=== PATIENT | female | born 1975 | race African-American/Black ===

== ENCOUNTER 2019-08-26 13:34 | Emergency (ER) | payer OTHER, SELFPAY ==
[2019-08-26 13:38] VITALS: BP 148/82; PULSE 120; RESP 20; TEMP 38; O2SAT 100
--- NOTE | 2019-08-26 13:59 | ED.GENADULT ---
HPI - General Adult General Chief complaint: Unspecified Stated complaint: body aches, unknown fever, cold symptoms Time Seen by Provider: 08/26/19 13:46 Source: patient Mode of arrival: ambulatory Limitations: no limitations History of Present Illness HPI narrative: Patient is a 44-year-old female who presents to emergency department for evaluation of upper respiratory symptoms that began last night was getting over an upper respiratory infection that she had had in the last 10 days but acutely began to feel worse last night with fever chills body ache rhinorrhea congestion and cough patient notes pain with coughing that is a mild aching pain patient took medication last night with minimal improvement patient on arrival to emergency department is in the room Review of Systems Review of Systems: Narrative: CONSTITUTIONAL: Positive for fever and chills and sweats EYES: Denies redness, or discharge. ENT: Positive for rhinorrhea, congestion, sore throat, and otalgia. RESPIRATORY: Denies dyspnea. GASTROINTESTINAL: Denies abdominal pain, nausea, vomiting, or diarrhea. GENITOURINARY: Denies dysuria or hematuria. SKIN: Denies rash or itching. MUSCULOSKELETAL: Denies back pain, joint pain, or myalgia. NEUROLOGIC: Denies headache, or weakness. [facility] Surgical History Surgical History (Updated 08/26/19 @ 14:06 by Aki Payne PA-C) History of orthopedic surgery Social History Social History (Updated 08/26/19 @ 14:06 by Aki Payne PA-C) Smoking status: Never smoker Gender identity (if verbalized by the patient): Female Exam Narrative: Exam Narrative: GENERAL: Ill-appearing, well-nourished, and in no acute distress. HEAD: Normocephalic, atraumatic. EYES: PERRLA and EOMI. ENT: Nares clear, no rhinorrhea or epistaxis. Mucous membranes moist. Oropharynx without tonsillar hypertrophy exudate or other lesions. Bilateral TMs pearly rosas nonbulging NECK: Supple. No adenopathy or masses. CHEST: Clear to auscultation. No respiratory distress. No wheezes rales or rhonchi HEART: Regular rate and rhythm. No murmur heard. EXTREMITIES: Normal range of motion. No edema. SKIN: Warm, dry, no rash. NEURO: No focal deficits. Alert and oriented x3. PSYCH: Normal mood and affect. Course Course Emergency Course: Patient in the room in no distress aware of case findings treatment plan and diagnosis agreeing to follow-up as directed Vital Signs Vital signs: Vital Signs Temperature 100.4 F H 08/26/19 13:38 Pulse Rate 120 H 08/26/19 13:38 Respiratory Rate 20 08/26/19 13:38 Blood Pressure 148/82 H 08/26/19 13:38 Pulse Oximetry 100 08/26/19 13:38 Temperature 100.4 F H 08/26/19 13:38 Pulse Rate 120 H 08/26/19 13:38 Respiratory Rate 20 08/26/19 13:38 Blood Pressure 148/82 H 08/26/19 13:38 Pulse Oximetry 100 08/26/19 13:38 Medical Decision Making MDM Narrative Medical decision making narrative: Patient with influenza A in the room in no distress will be treated symptomatically felt appropriate for outpatient reevaluation provided with reasons to return Vital Signs Vital Signs: Vital Signs Temperature 100.4 F H 08/26/19 13:38 Pulse Rate 120 H 08/26/19 13:38 Respiratory Rate 08/26/19 13:38 Blood Pressure 148/82 H 08/26/19 13:38 Pulse Oximetry 100 08/26/19 13:38 Temperature 100.4 F H 08/26/19 13:38 Pulse Rate 120 H 08/26/19 13:38 Respiratory Rate 08/26/19 13:38 Blood Pressure 148/82 H 08/26/19 13:38 Pulse Oximetry 100 08/26/19 13:38 Lab Data Labs: Influenza A Screen Positive Reference Range: Negative Influenza B Screen Negative Reference Range: Negative Discharge Plan Discharge Clinical Impression: Influenza A Patient Disposition: Home, Self-Care Condition: Stable Instructions: Antibiotic Form, Influenza (ED) Additional Instructions: Follow up with your primary care provider within 5-7 days. Go
[2019-08-26] MEDS: IBUPROFEN 600 MG TABLET PO (14:08)
[2019-08-26] MEDS: ACETAMINOPHEN 500 MG TABLET 1000 MG PO (14:09)
== END 2019-08-26 14:35 | disposition home or self-care (01) ==
PROVIDERS: Emergency Provider Emergency Medicine
DX: J10.1 Influenza due to other identified influenza virus with other respiratory manifestations (principal)
CPT/HCPCS: 87804; 99283; A9270

== ENCOUNTER 2019-09-26 16:51 | Emergency (ER) | payer OTHER, SELFPAY ==
[2019-09-26 17:26] VITALS: BP 138/81; PULSE 100; RESP 18; TEMP 37; O2SAT 100
--- NOTE | 2019-09-26 17:33 | ED.SKABFB ---
HPI - Skin/Abscess/Foreign Bdy General Chief complaint: Skin/Abscess/Foreign Body Stated complaint: Qtip stuck in R ear Time Seen by Provider: 09/26/19 17:31 Source: patient and RN notes reviewed Mode of arrival: other Limitations: no limitations History of Present Illness HPI narrative: Pt is a 44 y/o female who presents to the ED with c/o a foreign body in her right ear that occurred yesterday while at home. Pt states that she was using a Q-tip last night and the cotton part of the Q-tip got stuck in her ear. Pt went to her PCP's office today and she states her PCP saw the cotton from the Q-tip, but she said her PCP said it was too deep for her PCP to get it out. Pt also report otalgia in her right ear, but denies a fever. complaint: foreign body Onset (ago): day(s) (1) Context: other (used a Q-tip) Associated symptoms: other (otalgia in right ear) Review of Systems Review of Systems: All systems reviewed & are unremarkable except as noted in HPI and below Constitutional: Constitutional: Denies fever(s) ENT: Reports otalgia (in right ear) and Reports other (foreign body sensation in right ear) PMFSH Past Medical History Medical History (Updated 09/26/19 @ 17:53 by Violeta Viveros) Patient denies significant medical history Surgical History Surgical History (Updated 08/26/19 @ 14:06 by Aki Payne PA-C) History of orthopedic surgery Social History Social History (Updated 08/26/19 @ 14:06 by Aki Payne PA-C) Smoking status: Never smoker Gender identity (if verbalized by the patient): Female Exam Const: General: healthy appearing and no acute distress Nutritional Appearance: well nourished HENMT: Ears: hearing grossly normal bilaterally and TM's normal bilaterally (No foreign body seen) Mouth: Yes lip normal and Yes moist mucous membranes Eyes: Conjunctivae: conjunctivae normal Pupils: Equal, round and reactive pupils present Resp: Effort & Inspection: normal respiratory effort Back/Spine/Pelvis: Back: other (full ROM) Skin: General skin exam: normal color, dry skin and other (warm) Neuro: General: patient oriented x3 and other (alert) Speech: normal speech Extrem: General: full ROM Psych: Mental Status: mental status grossly normal Affect: normal affect Course Vital Signs Vital signs: Vital Signs Temperature 37.0 C 09/26/19 17:26 Pulse Rate 100 09/26/19 17:26 Respiratory Rate 18 09/26/19 17:26 Blood Pressure 138/81 09/26/19 17:26 Pulse Oximetry 100 09/26/19 17:26 Temperature 37.0 C 09/26/19 17:26 Pulse Rate 68 09/26/19 18:44 Respiratory Rate 16 09/26/19 18:44 Blood Pressure 114/67 09/26/19 18:44 Pulse Oximetry 97 09/26/19 18:44 MDM - Skin/Abscess/Foreign Bdy Differential Diagnosis Differential diagnosis: Likely other (foreign body otitis media) Medical Records Attestation: I reviewed the patient's medical records. Lab Data Attestation: I reviewed the patient's lab results. Discharge Plan Discharge Clinical Impression: Foreign body sensation in ear canal Qualifiers: Laterality: right Qualified Code(s): H61.891 - Other specified disorders of right external ear Patient Disposition: Home, Self-Care Condition: Stable Instructions: Earache (ED) Prescriptions: No Action oseltamivir [Tamiflu] 75 mg capsule 75 mg PO Q12H 5 Days Qty: 10 RF: 0 fluticasone propionate [Flonase Allergy Relief] 50 mcg/actuation spray,suspension 2 spray NASAL DAILY Qty: 9.9 RF: 0 montelukast [Singulair] 10 mg tablet 10 mg PO DAILY Qty: 7 RF: 0 ibuprofen [IBU] 600 mg tablet 600 mg PO TID PRN (Reason: fever or pain) Qty: 7 RF: 0 Follow-up/Referrals: UNKNOWN,DOCTOR [Primary Care Provider] - Discharge Date/Time: 09/26/19 18:45
--- NOTE | 2019-09-26 18:43 | PC.NURSE ---
Right ear lightly irrigated with Normal Saline. No foreign body visualized before or after irrigation. No complications noted before or after irrigation.
[2019-09-26 18:44] VITALS: BP 114/67; PULSE 68; RESP 16; O2SAT 97
== END 2019-09-26 18:45 | disposition home or self-care (01) ==
PROVIDERS: Emergency Provider Emergency Medicine
DX: H61.891 Other specified disorders of right external ear (principal)
CPT/HCPCS: 99282

== ENCOUNTER 2022-01-17 14:51 | Emergency (ER) | payer OTHER, SELFPAY ==
--- NOTE | ~2022-01-17 | CT_ITS ---
EXAMINATION: CT abdomen pelvis w con DATE: 01/17/2022 18:24 INDICATION: left flank pain, llq abdominal pain, nausea TECHNIQUE: Computed tomography (CT) of the abdomen and pelvis was performed with 100 mL Omnipaque-300 intravenous contrast. Automated exposure control and iterative reconstruction technique were employe d. The dose-length product was 514.58 mGy-cm. COMPARISON: None. FINDINGS: Lower thorax: Unremarkable Liver: Multiple liver cysts. Multiple liver hemangiomas. Multiple hypodensities, too small to charact erize, but also likely represent cysts. Biliary/Gallbladder: Partially contracted. No bile duct dilation. Pancreas: No mass or duct dilation. Spleen: Normal. Adrenals:No mass. Kidneys: Left upper pole simple cyst. Multiple bilateral hypodensities that are too small to characte rize but also likely represent cysts. No mass or hydronephrosis. GI tract: No small or large bowel dilation. Normal appendix. Mesentery/Peritoneum: No ascites, mass, or free air. Retroperitoneum: No mass. Pelvis: Fibroid uterus. Right corpus luteal cyst. Coarse calcification in the left ovary. Multiple pe lvic phleboliths. Soft Tissues: Soft tissues and body wall unremarkable. Bones: No acute osseous finding. IMPRESSION: No acute abdominopelvic process. Reviewed, dictated and finalized at location K.
[2022-01-17 14:53] VITALS: BP 145/83; PULSE 120; RESP 18; TEMP 37.1; O2SAT 100
[2022-01-17 15:26] LABS: Appearance Urine Clear (Clear); Bilirubin Urine Negative (Negative); Color Urine Yellow (Yellow); Glucose Urine UA Negative (Negative); Ketones Urine Negative (Negative); Leukocyte Esterase Ur Negative LEU/UL (Negative); Nitrate Urine Negative (Negative); Protein Urine Negative (Negative); Specific Grav Ur 1.025 (1.001-1.035); Urobilinogen Urine 0.2 mg/dL (<2.0)
[2022-01-17 15:27] LABS: Add Urine Microscopic? YES; Blood Urine Trace-Intact (Negative)
[2022-01-17 15:30] LABS: Bacteria Urine Trace /hpf; Mucus Urine Rare /lpf; RBC Urine 0-2 /hpf (0-2); Squamous Epithelial Cell Urine Occasional /hpf (Few); WBC Urine 0-3 /hpf
--- NOTE | 2022-01-17 16:24 | ECG_ITS ---
Measurements Intervals [place] Rate: 99 P: 37 SD: 145 QRS: -29 QRSD: 84 T: 22 QT: 330 QTc: 424 Interpretive Statements SINUS RHYTHM LEFTWARD AXIS NONSPECIFIC T-WAVE ABNORMALITY NO PREVIOUS ECG AVAILABLE FOR COMPARISON Electronically Signed On 01-18-2022 10:49:31 CDT by Ozzie Le M.D.
--- NOTE | 2022-01-17 16:25 | ED.FEMALEGU ---
HPI - Female Genitourinary General Chief complaint: Urogenital-Female Stated complaint: uti or kidney infection Time Seen by Provider: 01/17/22 16:17 History of Present Illness HPI Narrative: Patient is a 46-year-old female with a history of spinal cord injury requiring her to self catheterize here for evaluation of left low back pain and cramping for the past 3 days. Patient states the pain is there all the time and she states that she has had a similar pain in the past with previous UTIs. She additionally complaining of urinary frequency, hematuria, subjective fevers, nausea, and some lower abdominal pain. No vomiting, chest pain, shortness of breath, saddle anesthesia, vaginal discharge. Related Data Home Medications Medication Instructions Recorded Confirmed No Home Medications 01/17/22 Allergies Allergy/AdvReac Type Severity Reaction Status Date / Time No Known Allergies Allergy Verified 01/17/22 14:55 Review of Systems Review of Systems: Gen.: Reports subjective fevers. Eyes: Denies eye pain or visual change ENT: Denies congestion Respiratory: Denies shortness of breath or cough CV: Denies chest pain or palpitations GI: Reports lower abdominal pain and nausea. Denies emesis or diarrhea reports frequency, hematuria. Denies vaginal discharge. Musculoskeletal: Reports left low back pain. Neuro: Denies numbness, tingling, weakness or focal weakness Skin: Denies rash Except as documented, all other systems reviewed and negative [facility] Past Medical History Medical History Patient denies significant medical history Surgical History Surgical History History of orthopedic surgery Social History Social History (Updated 08/26/19 @ 14:06 by Aki Payne, [place]) Smoking status: Never smoker Gender identity (if verbalized by the patient): Female Exam Narrative: APPEARANCE: Well-appearing, in wheelchair Head: Normocephalic and atraumatic. EYES: PERRLA/EOMI, conjunctivae clear NOSE: No nasal drainage EARS: External ear normal in appearance THROAT: Oropharynx is clear. Mucous membranes are moist. NECK: Supple. No adenopathy, no masses. RESPIRATORY: Airway patent, respirations nonlabored. Clear to auscultation bilaterally, no rales, rhonchi, wheezing. CARDIOVASCULAR: Regular rate and rhythm without murmurs, rubs, or gallops. ABDOMINAL: Mild tenderness in suprapubic region. Normoactive bowel sounds. Soft, nontender, nondistended. No rebound tenderness or guarding. MUSCULOSKELETAL: Left CVA tenderness. Extremities are warm and well-perfused. No edema. NEURO: Normal speech. SKIN: Skin is warm and dry. No rashes. PSYCHIATRIC: Normal affect/mood. Course Vital Signs Vital signs: Vital Signs Temperature 98.8 F 01/17/22 14:53 Pulse Rate 120 H 01/17/22 14:53 Respiratory Rate 18 01/17/22 14:53 Blood Pressure 145/83 H 01/17/22 14:53 Pulse Oximetry 100 01/17/22 14:53 Oxygen Delivery Room Air 01/17/22 14:53 Temperature 98.8 F 01/17/22 14:53 Pulse Rate 120 H 01/17/22 14:53 Respiratory Rate 18 01/17/22 14:53 Blood Pressure 145/83 H 01/17/22 14:53 Pulse Oximetry 100 01/17/22 14:53 Oxygen Delivery Room Air 01/17/22 14:53 MDM - Female Genitourinary MDM Narrative Medical decision making narrative: 46 year old female here for evaluation of left sided flank pain, urgency, frequency today. Patient is tachycardic, vital signs otherwise normal, upon chart review her heart rate is chronically elevated. EKG is in sinus tach; troponin and dimer negative; not having chest pain. She has moderate tenderness over her left flank. Considered uti, pyelonephritis, nephrolithiasis, low back sprain. Workup significant for clear UA, h/h is 7.9/28.9. she tells me she has chronically low hemoglobin due to iron deficiency anemia; occasionally at times as
[2022-01-17 17:18] LABS: Basophils Percent Auto 0.9 % (0.2-1.2); Eosinophils Absolute Auto 0.1 K/mm3 (0-0.3); Hematocrit 28.9 % (37.0-47.0); Hemoglobin 7.9 g/dL (12.0-15.0); Immature Granulocyte Absolute 0.01 K/mm3 (0.00-0.031); Immature Granulocyte Percent A 0.2 % (0-0.5); Lymphocytes Percent Auto 8.7 % (18.3-44.2); Mean Corpuscular HGB Conc 27.3 g/dl (32-36); Mean Corpuscular Hemoglobin 18.9 pg (26-34); Mean Platelet Volume 8.8 fl (7.4-10.4); Monocytes Absolute Auto 0.3 K/mm3 (0.1-0.6); Monocytes Percent Auto 6.1 % (2.6-8.5); Neutrophils Absolute Auto 3.8 K/mm3 (1.3-6.7); Neutrophils Percent Auto 82.1 % (45.5-73.1); Platelet Count Result 535 k/mm3 (150-375); Red Blood Count 4.19 M/mm3 (4.2-5.4); Red Cell Distribution Width 17.7 % (11.5-14.5); White Blood Count 4.6 K/mm3 (4.5-10.0)
[2022-01-17 17:33] LABS: Alanine Aminotransferase 11 U/L (6-35); Albumin Level 4.2 g/dL (3.5-5.1); Alkaline Phosphatase 70 U/L (38-126); Anion Gap 7 mmol/L (8-16); Aspartate Amino Transferase 24 U/L (14-36); Bilirubin,Total 0.1 mg/dL (0.2-1.3); Blood Urea Nitrogen 11 mg/dL (7-17); Calcium 8.7 mg/dL (8.4-10.2); Carbon Dioxide 23 mmol/L (22-30); Chloride 107 mmol/L (98-107); Estimated CRCL calculation 80 ml/min; Estimated Glomerular Filt Rate > 60; Glucose 93 mg/dL (65-110); Lipase 108 U/L (23-300); Potassium 3.9 mmol/L (3.4-5.0); Sodium 137 mmol/L (137-145)
[2022-01-17 17:36] LABS: Anisocytosis 1+ (NORMAL); Hypochromasia 1+ (NORMAL); Ovalocytes 1+ (NORMAL); Platelet Estimate Increased (Adequate); Target Cells 1+ (NORMAL)
[2022-01-17 17:38] LABS: D Dimer 0.48 ug/mL (<0.48)
[2022-01-17 17:43] LABS: Troponin I < 0.012 ng/mL (0.000-0.034)
[2022-01-17] MEDS: ACETAMINOPHEN 500 MG TABLET 1000 MG PO (19:27)
[2022-01-17] MEDS: IBUPROFEN 600 MG TABLET PO (19:28)
== END 2022-01-17 19:39 | disposition home or self-care (01) ==
PROVIDERS: Emergency Medicine; Physician Assistant; Emergency Provider Emergency Medicine
DX: M54.50 Low back pain, unspecified (principal); D50.9 Iron deficiency anemia, unspecified; R94.31 Abnormal electrocardiogram [ECG] [EKG]
CPT/HCPCS: 36415; 74177; 80053; 81001; 81025; 83690; 84484; 85025; 85380; 93005; 99284; A9270; Q9967

== ENCOUNTER 2023-06-16 08:33 | Emergency (ER) | payer OTHER, SELFPAY ==
--- NOTE | ~2023-06-16 | CT_ITS ---
EXAMINATION: CT abdomen pelvis w con INDICATION: Upper abdominal pain TECHNIQUE: Computed tomographic images of the abdomen and pelvis were obtained after the administrati on of 100 cc of Omnipaque 350 intravenous contrast. The dose-length product (DLP) was 374.66 mGy-cm. Automated exposure control and iterative reconstruction technique were employed. COMPARISON: 01/17/2022 FINDINGS: Minimal dependent atelectasis is present in the lung bases. The heart size is normal. There are multiple cysts and hemangiomas of the liver. The largest hemangioma measures 3.2 cm in the left hepatic lobe. The spleen, pancreas, gallbladder, and adrenal glands are normal. Cysts of the kidneys measure up to 2.6 cm on the right. No pathologically enlarged abdominal or pelvic lymph nodes are vinayak ntified. No free intraperitoneal gas or evidence of bowel obstruction. There is circumferential wall thickening of the colon from the descending colon through the rectum. There is trace pelvic ascites. There are multiple uterine fibroids. There is anterior fusion of the T12 and L1 vertebral bodies. The re is chronic mild inflammatory change in the buttocks and posterior soft tissues calcaneus, likely r elated to paraplegic state. IMPRESSION: 1. Findings consistent with colitis from the descending colon through the rectum. Reviewed, dictated and finalized at location F. [employer]NAGER IMPRESSION: 1. Findings consistent with colitis from the descending colon through the rectu gorge
[2023-06-16 08:28] VITALS: BP 147/93; PULSE 83; RESP 31; TEMP 36.7; O2SAT 100
[2023-06-16 09:03] LABS: Basophils Percent Auto 0.4 % (0.2-1.2); Eosinophils Percent Auto 0.3 % (0-4.4); Hematocrit 42.9 % (37.0-47.0); Hemoglobin 13.1 g/dL (12.0-15.0); Immature Granulocyte Absolute 0.04 K/mm3 (0.00-0.031); Immature Granulocyte Percent A 0.6 % (0-0.5); Lymphocytes Absolute Auto 1.21 K/mm3 (0.9-3.2); Lymphocytes Percent Auto 17.6 % (18.3-44.2); Mean Corpuscular HGB Conc 30.5 g/dl (32-36); Mean Corpuscular Hemoglobin 26.7 pg (26-34); Mean Corpuscular Volume 87.6 fl (80-100); Mean Platelet Volume 10.1 fl (7.4-10.4); Monocytes Absolute Auto 0.2 K/mm3 (0.1-0.6); Monocytes Percent Auto 3.2 % (2.6-8.5); Neutrophils Absolute Auto 5.3 K/mm3 (1.3-6.7); Neutrophils Percent Auto 77.9 % (45.5-73.1); Platelet Count Result 371 k/mm3 (150-375); Red Cell Distribution Width 16.5 % (11.5-14.5); White Blood Count 6.9 K/mm3 (4.5-10.0)
[2023-06-16 09:13] LABS: Alanine Aminotransferase 17 U/L (6-35); Albumin Level 4.2 g/dL (3.5-5.1); Alkaline Phosphatase 88 U/L (38-126); Anion Gap 16 mmol/L (8-16); Aspartate Amino Transferase 23 U/L (14-36); Bilirubin,Total 0.4 mg/dL (0.2-1.3); Blood Urea Nitrogen 12 mg/dL (7-17); Calcium 9.1 mg/dL (8.4-10.2); Carbon Dioxide 13 mmol/L (22-30); Chloride 108 mmol/L (98-107); Estimated CRCL calculation 97 ml/min; Estimated Glomerular Filt Rate > 60; Glucose 189 mg/dL (65-110); Lipase 99 U/L (23-300); Potassium 3.2 mmol/L (3.4-5.0); Sodium 137 mmol/L (137-145)
--- NOTE | 2023-06-16 09:18 | ED.ABDPAIN ---
HPI - Abdominal Pain General Chief Complaint: Abdominal Pain Stated Complaint: Abd Pain with vomiting Time Seen by Provider: 06/16/23 08:58 Source: patient Mode of arrival: EMS Limitations: no limitations History of Present Illness HPI narrative: Patient is a 48 y/o female, with PMH of paraplegia r/t spinal cord injury, anemia, PUD, who presents to the ED via EMS with report of abdominal pain. Patient reports she began feeling unwell around 2:00 a.m. this morning. She developed upper abdominal cramping, diarrhea, nausea, vomiting. Since has had multiple episodes of each. Unable to keep down any food or drink. She also reports body aches and chills, denies known fever. Denies family members with similar symptoms that she is aware of. Denies known bad food exposure. Denies hematemesis, rectal bleeding, melena. Related Data Allergies Allergy/AdvReac Type Severity Reaction Status Date / Time iodine Allergy Swelling Verified 06/16/23 10:28 Review of Systems Review of Systems: CONSTITUTIONAL: See HPI. ENT: Denies rhinorrhea, congestion, sore throat. CARDIOVASCULAR: Denies chest pain, palpitations, or edema. RESPIRATORY: Denies cough or dyspnea. GASTROINTESTINAL: See HPI. MUSCULOSKELETAL: Reports myalgia. NEUROLOGIC: Denies headache, numbness, or weakness. All systems reviewed & are unremarkable except as noted in HPI and below PMFSH Past Medical History Medical History Patient denies significant medical history Surgical History Surgical History History of orthopedic surgery Social History Social History Smoking status: Never smoker Gender identity (if verbalized by the patient): Female Exam Narrative: GENERAL: Mildly ill and uncomfortable appearing, well-nourished, non-toxic. HEAD: Normocephalic, atraumatic. NECK: Supple. No adenopathy, no masses. RESPIRATORY: Airway patent, respirations nonlabored. Clear to auscultation bilaterally, no rales, rhonchi, wheezing. CARDIOVASCULAR: Regular rate and rhythm without murmurs, rubs, or gallops. Radial pulses 2+ and equal bilaterally. ABDOMINAL: Soft, tenderness throughout upper abdominal/epigastric region, nondistended, no hepatosplenomegaly. Normoactive BS. MUSCULOSKELETAL: Paraplegia bilateral lower extremities. Muscle atrophy noted to lower extremities. No gross deformities. SKIN: Warm, dry, normal color. No rashes. NEURO: A&O X3. Speech clear. Cranial nerves II-XII grossly intact. No ataxic movements. PSYCHIATRIC: Appropriate mood and affect. Normal interaction. Course Vital Signs Vital signs: Vital Signs Temperature 98.0 F 06/16/23 08:28 Pulse Rate 83 06/16/23 08:28 Respiratory Rate 31 H 06/16/23 08:28 Blood Pressure 147/93 H 06/16/23 08:28 Pulse Oximetry 100 06/16/23 08:28 Oxygen Delivery Room Air 06/16/23 08:28 Temperature 98.0 F 06/16/23 08:28 Pulse Rate 87 06/16/23 11:50 Respiratory Rate 20 06/16/23 11:50 Blood Pressure 149/83 H 06/16/23 11:50 Pulse Oximetry 100 06/16/23 11:50 Oxygen Delivery Room Air 06/16/23 08:28 MDM - Abdominal Pain MDM Narrative Medical decision making narrative: Patient presented to ED with nausea, vomiting, diarrhea, upper abdominal pain onset this morning around 2:00 a.m. Patient's vital stable upon arrival. Afebrile. CBC without leukocytosis, does show evidence of hemoconcentration. CMP with potassium 3.2, bicarb low at 13. Anion gap of 16. BG minimally elevated to 189. Fluids ongoing. Stable kidney function. NML LFTs and lipase. UA with nitrite positive, 4+ urine bacteria. Will send for culture. Patient straight caths herself d/t hx of spinal cord injury. Will Tx for potential UTI given this Hx/high risk for infection. CT scan of the abdomen pelvis obtained in showing findings cons
[2023-06-16] MEDS: SODIUM CHLORIDE 0.9% IV 1,000 ML 999 ML IV CONT ×2 (09:31→11:10)
[2023-06-16] MEDS: ONDANSETRON INJ 4 MG/2 ML VIAL IV PUSH (09:34)
[2023-06-16] MEDS: MORPHINE SULFATE (*CRX) 4 MG/ML INJ IV PUSH (09:35)
[2023-06-16] MEDS: FAMOTIDINE 20 MG/2 ML VIAL IV PUSH (09:39)
[2023-06-16] MEDS: KCL 20 MEQ/SW 100 ML 100 ML 50 MEQ IVPB (09:45)
[2023-06-16 10:13] LABS: Magnesium 1.8 mg/dL (1.6-2.3)
[2023-06-16 10:16] VITALS: BP 135/90; PULSE 66; RESP 17; O2SAT 100
[2023-06-16 10:32] VITALS: BP 140/87; PULSE 82; RESP 19; O2SAT 99
[2023-06-16 10:40] LABS: Appearance Urine Clear (Clear); Bacteria Urine 4+ /hpf; Bilirubin Urine Negative (Negative); Blood Urine Trace (Negative); Color Urine Yellow (Yellow); Glucose Urine UA Negative (Negative); Ketones Urine 1+ mg/dL (Negative); Leukocyte Esterase Ur Negative LEU/UL (Negative); Nitrate Urine Positive (Negative); Non Pathogenic Casts 0-2; Protein Urine Negative (Negative); RBC Urine 0-2 /hpf (0-2); Squamous Epithelial Cell Urine None seen /hpf (Few); Urobilinogen Urine 0.2 mg/dL (<2.0); WBC Urine 0-5 /hpf
[2023-06-16 10:49] LABS: Add Urine Microscopic? YES
[2023-06-16 11:12] VITALS: BP 115/71; PULSE 75; RESP 19; O2SAT 100
[2023-06-16] MEDS: POTASSIUM CHLORIDE 20 MEQ ER TABLET PO (11:49)
[2023-06-16 11:50] VITALS: BP 149/83; PULSE 87; RESP 20; O2SAT 100
== END 2023-06-16 12:39 | disposition home or self-care (01) ==
PROVIDERS: Emergency Medicine; Emergency Provider Physician Assistant
DX: K52.9 Noninfective gastroenteritis and colitis, unspecified (principal); E86.0 Dehydration; E87.6 Hypokalemia; R82.998 Other abnormal findings in urine
CPT/HCPCS: 36415; 74177; 80053; 81001; 81025; 83690; 83735; 85025; 96361; 96365; 96366; 96375; 99284; A9270; J2270; J2405; J3480; J7030; Q9967